=== PATIENT | male | born 1975 | race Caucasian/White ===

== ENCOUNTER 2020-02-11 14:56 | Observation (INO) ==
[2020-02-11] MEDS ORDERED: 0.9 % Sodium Chloride 1,000 ML IVC ONE (16:42)
[2020-02-11] MEDS ORDERED: Ondansetron 4 MG/2 ML VIAL IVP ONE (16:42)
[2020-02-11 16:51] LABS: Bilirubin,Urine Negative (Negative); Blood,Urine Negative (Negative); Clarity,Urine Clear (Clear); Color,Urine Light-Yellow (Yellow); Glucose,Urine (UA) Normal (Normal); Ketones,Urine 10 mg/dL (Negative); Leukocyte Esterase,Urine Negative (Negative); Nitrite,Urine Negative (Negative); Protein,Urine Negative (Neg-Trace); Specific Gravity,Urine 1.018 (1.010-1.025); Urobilinogen,Urine Normal (Normal)
[2020-02-11] MEDS ORDERED: Isovue-370 500 ML BOTTLE IVP ONE (17:25)
[2020-02-11 17:39] LABS: Basophils % 0.3 %; Eosinophils # 0.1 K/mcL (0.0-0.6); Eosinophils % 0.5 %; Hematocrit 43.9 % (37.5-50.1); Hemoglobin 14.6 g/dL (12.9-16.9); Immature Granulocytes % 0.3 % (0-4); Lymphocytes # 1.2 K/mcL (0.6-4.6); Mean Corpuscular HGB Conc 33.3 g/dL (31.6-35.5); Mean Corpuscular Hemoglobin 30.5 pg (28.0-33.3); Mean Corpuscular Volume 91.8 fL (83.0-100.0); Mean Platelet Volume 10.5 fL (9.4-12.4); Monocytes # 0.9 K/mcL (0.0-1.3); Monocytes % 6.7 %; Neutrophils # 10.7 K/mcL (1.6-8.9); Platelet Count 252 K/mcL (140-400); Red Blood Count 4.78 M/mcL (4.19-5.50); Red Cell Distribution Width 12.3 % (11.5-14.5); Segmented Neutrophils % 83.2 %; White Blood Count 12.9 K/mcL (4.3-11.1)
[2020-02-11 17:56] LABS: Alanine Aminotransferase 15 Units/L (7-52); Albumin 4.4 g/dL (3.5-5.7); Albumin/Globulin Ratio 1.2 (1.1-2.2); Alkaline Phosphatase 82 Units/L (34-104); Amylase 31 Units/L (29-103); Aspartate Amino Transferase 13 Units/L (13-39); BUN/Creatinine Ratio 11 (6-26); Bilirubin,Direct 0.2 mg/dL (0.0-0.2); Bilirubin,Indirect 0.6 mg/dL (0.0-1.0); Bilirubin,Total 0.8 mg/dL (0.3-1.0); Blood Urea Nitrogen 9 mg/dL (6-20); Calcium 9.7 mg/dL (8.6-10.3); Carbon Dioxide 24 mEq/L (23-29); Chloride 100 mEq/L (98-107); Globulin 3.6 g/dL (2.4-3.5); Glucose 125 mg/dL (70-105); Lipase 9 Units/L (11-82); Osmolality,Calculated 282 (280-300); Potassium 3.7 mEq/L (3.5-5.1); Sodium 136 mEq/L (136-145); eGFR For African Americans > 60 (> 60); eGFR For Non-African Americans > 60 (> 60)
[2020-02-11] MEDS ORDERED: Piperacillin/Tazobactam 3.375 GM in Water for inj. (sterile) 20 ML IVP ONE (19:18)
[2020-02-11 20:27] LABS: Adenovirus Not Detected (Not Detect); Bordetella Pertussis Not Detected (Not Detect); Coronavirus 229E Not Detected (Not Detect); Coronavirus HKU1 Not Detected (Not Detect); Coronavirus NL63 Not Detected (Not Detect); Coronavirus OC43 Not Detected (Not Detect); Human Metapneumovirus Not Detected (Not Detect); Human Rhinovirus/Enterovirus Not Detected (Not Detect); Influenza A Subtype 2009 H1 Not Detected (Not Detect); Influenza B Not Detected (Not Detect); Parainfluenza Virus 1 Not Detected (Not Detect); Parainfluenza Virus 2 Not Detected (Not Detect); Parainfluenza Virus 3 Not Detected (Not Detect); Parainfluenza Virus 4 Not Detected (Not Detect); Respiratory Syncytial Virus Not Detected (Not Detect); SARS-CoV-2 Not Detected (Not Detect)
[2020-02-11 20:28] LABS: Chlamydophila pneumoniae Not Detected (Not Detect); Mycoplasma pneumoniae Not Detected (Not Detect)
[2020-02-11] MEDS ORDERED: Ondansetron 4 MG/2 ML VIAL IVP PRN (22:00)
[2020-02-11] MEDS ORDERED: 0.9 % Sodium Chloride 1,000 ML IV SCH (22:00)
[2020-02-12] MEDS ORDERED: *HR* Propofol 200 MG/20 ML VIAL IVP ONE (01:10)
[2020-02-12] MEDS ORDERED: *HR* HYDROMORPHONE 2 MG/ML VIAL ONE (01:10)
[2020-02-12] MEDS ORDERED: *HR* Rocuronium Bromide 50 MG/5 ML VIAL ONE (01:11)
[2020-02-12] MEDS ORDERED: Dexamethasone 4 MG/ML VIAL ONE (01:11)
[2020-02-12] MEDS ORDERED: Ondansetron 4 MG/2 ML VIAL ONE (01:11)
[2020-02-12] MEDS ORDERED: Lidocaine -MPF 2% 2 ML VIAL ONE (01:11)
[2020-02-12] MEDS ORDERED: Acetaminophen IV 1,000 MG/100 ML BAG ONE (01:15)
[2020-02-12] MEDS ORDERED: Famotidine 20 MG/2 ML VIAL ONE (01:15)
[2020-02-12] MEDS ORDERED: *HR* OxyCODONE/APAP 5/325 TABLET PO PRN (03:19)
[2020-02-12] MEDS ORDERED: Ondansetron 4 MG/2 ML VIAL IVP PRN (03:19)
[2020-02-12] MEDS ORDERED: Piperacillin/Tazobactam 3.375 GM in 0.9 % Sodium Chloride Mini Bag 100 ML IVPB SCH (04:00)
[2020-02-12] MEDS ORDERED: Ketorolac 15 MG/ML VIAL IVP SCH (06:00)
[2020-02-12] MEDS ORDERED: Piperacillin/Tazobactam 3.375 GM in 0.9 % Sodium Chloride Mini Bag 100 ML IVPB ONE (07:49)
[2020-02-12] MEDS ORDERED: Diclofenac Sodium (DR) 50 MG TABLET.DR PO SCH (09:00)
[2020-02-12 10:46] VITALS: BP 108/60
== END 2020-02-12 11:37 | disposition home or self-care (01) ==
LOC: EMEROOARM 14:56 → 2ANU 14:56
PROVIDERS: ADMIT Surgery; ATTEND Surgery